=== PATIENT | female | born 1945 | race African-American/Black ===

== ENCOUNTER 2025-04-14 13:21 | Outpatient (AMB) | payer OTHER, SELFPAY ==
--- NOTE | 2025-04-14 13:26 | A.OFFPC_ITS ---
Vital Signs 04/14/25 13:29 Height 5 ft 2.5 in Weight 130 lb 6 oz BMI 23.5 BP 120/74 Blood Pressure Location Lt brachial Position Sitting Respiration 16 Pulse 89 Pulse Source Pulse Oximeter Temp 97.1 F Temp Source Temporal Artery Scan Pulse Oximetry (%) 96 Oxygen Delivery Method Room Air Intake Visit Reasons: Routine Hand Outside Cutter Required: No Accompanied by: Self / Same As Patient Allergies No Known Allergies Allergy (Verified 04/14/25 13:30) Medication List - Last Reconciled 04/14/25 by Mely Krueger MD No Known Home Meds Tobacco use date assessed: 04/14/25 Last assessed Fall Risk: 04/14/25 Dental Screening Dental Screen Date: 04/14/25 Did you have a dental visit in the last 12 months?: Yes Did you have a dental problem in the last 6 months where you did not have access to dental care?: No Was dental information given to patient?: Patient has dentist HPI HPI Comments History of Present Illness Details 80 yo female presents to [facility] Reports has been recovering from URI symptoms recently: Nasal congestion/sore throat Discomfort started a week ago, alleviated by Tylenol day and night, tea with honey and lemon. No fevers, no chills, clear nasal discharge. 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 Patient experiences no significant changes in functional capacity. Vitamin D Deficiency: Managed with Vitamin D 1000 IU daily. Osteoporosis: Managed with calcium and vitamin D; bisphosphonates declined. Vitamin B12 Deficiency: Controlled with B12 supplementation. Medical History: - Immune Thrombocytopenic Purpura (ITP) - Vitamin D deficiency - Osteoporosis - Vitamin B12 deficiency Diagnostic Results: - Due for repeat complete blood count (C BC) due to ITP Review of Systems - General: per hpi - Gastrointestinal: Denies any significa nt changes in function. - Neurological: some difficulties with r ecollection of names noted, some repetition, no change in performing high level functions in daily activities Physical Exam General: NAD Chest: CTABL. Card: normal s1, s2, soft murmur across precordium Abd: SNTND, +BS Extremities: no edema Neuro: AOX3 Assessment and Plan 1. Immune Thrombocytopenic Purpura (ITP) - Repeat CBC for ongoing assessment 2. Nasal congestion- use flonase prn, c ontinue to monitor 3. Vitamin D deficiency - Continue vitamin D supplementation 4. Osteoporosis - Continue calcium and vitamin D; bispho sphonates declined 5. Vitamin B12 Deficiency - Continue B12 supplementation 6. Memory lapses- continue to monitor, d angel MOCA screening Plan - Schedule CBC for ITP - Use OTC meds for nasal congestion - Continue Vitamin D and calcium - Maintain B12 supplementation Discussion Notes During the visit, we discussed her stable condition of ITP and the need for routine monitoring through CBC tests. We talked about her vitamin D deficiency and she is advised to maintain supplementation with Vitamin D. For osteoporosis, the need to continue calcium supplements was emphasized. Her B12 deficiency is managed with supplementation, and this will be continued. Patient Instructions - Continue taking Tylenol as needed for discomfort. - Use home remedies like tea, honey, and lemon to help with symptoms. - Maintain daily Vitamin D and calcium s upplements. - Continue B12 supplementation. [facility] Medical History (Updated 04/14/25 @ 17:43 by Mely Krueger MD) Osteoporosis Vitamin B12 deficiency (non anemic) Vitamin D deficiency Thrombocytopenia Surgical History (Updated 04/12/25 @ 17:33 by Angie Payton) History of colonoscopy (~09/08/23) Social History Housing: House Patient Tobacco Use Status: Never used Tobacco e-Cigarette/Vaping Use: Never Used Current occupational status: retired Questionnaire AUDIT C Alcohol Use Questionnaire (AUDIT-C) 1. How often do you have a drink containing alcohol?: 4 or more times a week 2. How many drinks containing alcohol do you have on a typical day when you are drinking?: 1 or 2 3. How often do you have six or more drinks on one occasion?: Never Total Score: 4 Physical exam (Primary Care) Vital Signs: Last Vital Signs Temp 97.1 F 04/14/25 13:29 Pulse 89 04/14/25 13:29 Resp 16 04/14/25 13:29 BP 120/74 04/14/25 13:29 Pulse Ox 96 04/14/25 13:29 Oxygen Delivery Method Room Air 04/14/25 13:29 BMI result Body Mass Index 23.5 Tobacco/Smoking Status: Tobacco use Status Tobacco use date assessed 04/14/25 04/14/25 13:33 Patient Tobacco Use Status Never used Tobacco 04/14/25 13:33 e-Cigarette/Vaping Use Never Used 04/14/25 13:33 Coding Level of Care Code Est Pt Level 4 (82524) Complex EM visit Add On G2211 Diagnoses Osteoporosis, unspecified osteoporosis type, unspecified pathological fracture presence M81.0 Osteoporosis type: unspecified Presence of current pathological fracture: unspecified Thrombocytopenia D69.6 Vitamin D deficiency E55.9 Vitamin B12 deficiency (non anemic) E53.8 Assessment & Plan Assessment & Plan (1) Osteoporosis: Code(s): M81.0 - Age-related osteoporosis without current pathological fracture Category: Medical Qualifiers: Osteoporosis type: unspecified Presence of current pathological fracture: unspecified Qualified Code(s): M81.0 - Age-related osteoporosis without current pathological fracture Plan: continue current regimen (2) Thrombocytopenia: Code(s): D69.6 - Thrombocytopenia, unspecified Category: Medical Plan: continue current regimen (3) Vitamin D deficiency: Code(s): E55.9 - Vitamin D deficiency, unspecified Category: Medical Plan: continue current regimen (4) Vitamin B12 deficiency (non anemic): Code(s): E53.8 - Deficiency of other specified B group vitamins Category: Medical Plan: continue current regimen Plan see above Orders: Orders Vitamin B12 Today D69.6 - Thrombocytopenia, unspecified, E53.8 - Deficiency of other specified B group vitamins, E55.9 - Vitamin D deficiency, unspecified Vitamin D 25-OH Total Today D69.6 - Thrombocytopenia, unspecified, E53.8 - Deficiency of other specified B group vitamins, E55.9 - Vitamin D deficiency, unspecified Comprehensive Met. Panel Today D69.6 - Thrombocytopenia, unspecified, E53.8 - Deficiency of other specified B group vitamins, E55.9 - Vitamin D deficiency, unspecified Complete Blood Count Auto Diff Today D69.6 - Thrombocytopenia, unspecified, E53.8 - Deficiency of other specified B group vitamins, E55.9 - Vitamin D deficiency, unspecified Medications: New multivitamin 1 tab PO DAILY fluticasone propionate 50 mcg/actuation (Flonase Allergy Relief) administer into each nostril 1 spray intranasal BID 16 grams 4RF cholecalciferol (vitamin D3) 50 mcg PO DAILY cyanocobalamin (vitamin B-12) 1,000 mcg PO DAILY
[2025-04-14 13:29] VITALS: BP 120/74; PULSE 89; RESP 16; TEMP 36.2; O2SAT 96; BMI 23.5
--- OUTSIDE RECORDS SUMMARY | 2025-04-14 15:28 | XMS_ITS | Clinical Summary ---
Author Organization [facility] Address [address] [place] [address] Care Team Providers Care Ball Assembler Name Role Phone Mely Krueger MD Primary Care Provider [phone] Allergies No known active allergies Medications No known medications Active Problems No known active problems Immunizations Immunization Administration Dates Next Due Hep A-Hep B (Twinrix) 07/14/2007,09/22/2006,01/2007 IPV 08/13/2006 PCV-13 06/10/2017 Td (adult), adsorbed 08/13/2006 Tdap 03/08/2012 Yellow Fever 09/09/2017 Social History Tobacco Use Types Packs/Day Years Used Date Smoking Tobacco: Never Smokeless Tobacco: Never Comments No Sex and Gender Information Value Date Recorded Sex Assigned at Not on file Legal Sex Female 1:22 PM EDT Gender Identity Not on file Sexual Orientation Not on file Last Filed Vital Signs Vital Sign Reading Time Taken Comments Blood Pressure - - Pulse - - Temperature 36.8 C (98.2 F) 09/09/2017 10:22 AM EDT Respiratory Rate - - Oxygen Saturation - - Inhaled Oxygen Concentration - - Weight - - Height - - Body Mass Index - - Plan of Treatment Health Maintenance Due Date Last Done Comments Hepatitis C Screening 1945 Zoster (Shingrix) (1 of 2) 1996 Bone Density 2011 Pneumococcal 50+ years (2 of 2 - PCV20 or PCV21) 06/10/2018 06/10/2017 RSV (1 - 1-dose 75+ series) 2021 DTaP/Tdap/Td (2 - Td or Tdap) 03/08/2022, 08/13/2006 COVID-19 Vaccine ( - 2024-2 6 season) 2025 Influenza (#1) 2025 Hep A Aged Out 07/14/2007, 09/22/2006, 08/13/2006 No longer eligible based on patient's age to complete this topic Hep B Completed 07/14/2007, 09/22/2006, 08/13/2006 HPV Vaccine (No Doses Required) Completed Hib Aged Out No longer eligi ble based on patient's age to complete this topic Mammogram/Breast Imaging Discontinued Meningococcal ACWY Aged Out No longer eligible based on patient's age to complete this topic Pap Smear Discontinued Zoster (Zostavax) Discontinued Insurance MEDICARE PART B [employer] Care Teams Ball Assembler Relationship Specialty Start Date End Date Mely Krueger MD [address] [phone] PCP - General Internal Medicine 08/24/17
== END 2025-04-14 14:40 | disposition home or self-care (01) ==
LOC: HO.HMCHD 13:22
PROVIDERS: PCP Internal Medicine; Visit Provider Internal Medicine
DX: M81.0 Age-related osteoporosis without current pathological fracture (principal); D69.6 Thrombocytopenia, unspecified; E55.9 Vitamin D deficiency, unspecified; E53.8 Deficiency of other specified B group vitamins